=== PATIENT | male | born 1990 | race Caucasian/White ===

== ENCOUNTER 2017-12-10 22:36 | Inpatient (IN) | payer MEDICARE, MEDICAID ==
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
[2017-12-10 23:47] LABS: Appearance,Urine Clear (Clear); Bilirubin,Urine Negative (Negative); Blood,Urine Negative (Negative); Color,Urine Colorless; Glucose,Urine (UA) Negative (Negative); Ketones,Urine Negative (Negative); Leukocyte Esterase,Urine Negative (Negative); Nitrite,Urine Negative (Negative); PH, Urine 6.5 (5.0-8.0); Protein,Urine Negative (Negative); Specific Gravity,Urine 1.002 (1.001-1.035); Urobilinogen,Urine <2.0 mg/dL (<2.0)
[2017-12-11 00:08] LABS: Amphetamine Screen,Urine Not Detected (NotDetected); Barbiturate Screen,Urine Not Detected (NotDetected); Benzodiazepines Screen,Urine Not Detected (NotDetected); Cocaine Screen,Urine Not Detected (NotDetected); Methadone Screen, Urine Not Detected (NotDetected); Opiate Screen,Urine Not Detected (NotDetected); Oxycodone Screen, Urine Not Detected (NotDetected); Phencyclidine Screen,Urine Not Detected (NotDetected); Tricyclic Antidepressant,Urine Detected (NotDetected); Urn Cannabinoid Scrn Detected (NotDetected)
[2017-12-11] MEDS ORDERED: ZIPRASIDONE 20 MG VIAL IM PRN (02:02)
[2017-12-11] MEDS ORDERED: ACETAMINOPHEN TAB 325 MG TAB PO PRN (02:02)
[2017-12-11] MEDS ORDERED: MAGNESIUM HYDROXIDE 2,400 MG/10 ML CUP PO PRN (02:02)
[2017-12-11] MEDS ORDERED: MAG HYDROX/AL HYDROX/SIMETH 30 ML CUP PO PRN (02:02)
--- NOTE | 2017-12-11 07:46 | P.MDCNMH ---
History of Present Illness H&P Date: 12/11/17 Chief Complaint: Medical management 27-year-old male with no significant past medical history except for schizophrenia. Patient was brought into the hospital due to suicidal ideation, patient reports history of schizoaffective disorder, however recently due to overwhelming life stressors he's been feeling suicidal. He had been on probation due to possession of marijuana. He was having thoughts of hanging himself otherwise he would have used a weapon but he doesn't own 1. He is afraid of going to residential. He is currently is Denying Any Medical Concerns or Issues. He Denies Any Chest Pain or Trouble Breathing Denies Any Headaches Fevers Chills Nausea Vomiting or Coughing Denies Any Shortness Breath Denies Any Abdominal Pain or Changes in His Bowel Habits or Urinary Habits. Patient Reported One Concerned regarding a Palpable Rice Size Node at the Base of His Penis, he denies any sexual activity for at least the past 10 years. Denies any penile discharge. Denies any rash. He reports that he felt this for 3 days only, denies any pain, pruritus, or bleeding. Denies any discharge.. Review of Systems Pertinent positives as noted in HPI. All other systems were reviewed and are negative Past Medical History Past Medical History: No Reported History Additional Past Medical History / Comment(s): schizo-affective, bipolar History of Any Multi-Drug Resistant Organisms: None Reported Past Surgical History: No Surgical Hx Reported Past Anesthesia/Blood Transfusion Reactions: No Reported Reaction Past Psychological History: Anxiety, Bipolar, Depression Smoking Status: Current every day smoker Past Alcohol Use History: None Reported Past Drug Use History: None Reported - Past Family History Family Additional Family Medical History / Comment(s): Admits to mental health problems in his family without specifying further details Medications and Allergies Home Medications Medication Instructions Recorded Confirmed Type QUEtiapine [SEROquel] 400 mg PO HS 12/11/17 12/11/17 History Allergies Allergy/AdvReac Type Severity Reaction Status Date / Time No Known Allergies Allergy Verified 12/10/17 22:46 Physical Exam Vitals: Vital Signs Temp Pulse Pulse Resp BP BP Pulse Ox 12/11/17 02:28 98.7 F 108 H 16 129/80 95 12/11/17 02:15 98.3 F 97 18 130/80 97 12/10/17 22:43 98.4 F 119 H 18 133/88 97 Intake and Output 12/10/17 12/11/17 12/11/17 22:59 06:59 14:59 Other: Weight 101.605 kg 101.5 kg Constitutional: No acute distress, conversant, pleasant Eyes: Anicteric sclerae, moist conjunctiva, no lid-lag Pupils equal round reactive to light ENMT: NC/AT Oropharynx clear, no erythema, exudates Neck: Supple, FROM, no masses, or JVD No carotid bruits No thyromegaly Lungs: Clear to auscultation Clear to percussion Normal respiratory effort, no accessory muscle use Cardiovascular: Heart regular in rate and rhythm, No murmurs, gallops, or rubs No peripheral edema Abdominal: Soft Nontender, no guarding, rebound or rigidity Abdomen moving with respiration Normoactive bowel sounds No hepatomegaly, No splenomegaly No palpable mass No abdominal wall hernia noted In the presence of the patient nurse, and upon request of the patient, examination of the patient's of the penis was performed where he felt the small knot, it is a grain size nothing visual just palpable under the skin among the hairs, no tenderness no drainage no erythema. No palpable lymph nodes in the inguinal region. Skin: Normal temperature, tone, texture, turgor No induration No subcutaneous nodules No rash, lesions No ulcers Extremities: No digital cyanosis No clubbing Pedal pulses intact and symmetrical Radial pulses intact and symmetrical No calf tenderness Psychiatric: Alert and oriented to person, place and time Depressed affect Poor judgment Neuro Muscles Strength 5/5 in all 4 extremities Sensation to light touch grossly present throughout Cranial nerves II-XII grossly intact No focal sensory deficits Lymphatics: no palpable cervical or supraclavicular , or inguinal lymph nodes Cranial Nerve Examination - Cranial Nerves Cranial Nerve II- Optic: Intact Cranial Nerve III- Oculomotor: Intact Cranial Nerve IV- Trochlear: Intact Cranial Nerve V- Trigeminal: Intact Cranial Nerve - Abducens: Intact Cranial Nerve VII- Facial: Intact Cranial Nerve VIII- Auditory: Intact Cranial Nerve IX- Glossopharyngeal: Intact Cranial Nerve X- Vagus: Intact Cranial Nerve XI- Accessory: Intact Cranial Nerve XII- Hypoglossal: Intact Results CBC & Chem 7: 12/11/17 08:47 12/11/17 08:47 Labs: Abnormal Lab Results - Last 24 Hours (Table) 12/10/17 Range/Units 23:26 U Tricyclic Antidepress Detected H (NotDetected) U Marijuana (THC) Screen Detected H (NotDetected) Assessment and Plan Assessment: 27 year old male with history of schizophrenia and bipolar disorder, due to overwhelming life stressors, he has been feeling suicidal for which he was brought to the hopital , currently denies any medical problems or concerns. Plan: schizophrenia Bipolar Suicide ideation management per psych suicide precautions tobacco smoking counseled to quit smoking nicotine replacement therapy offered grain size palpable knot at the base of the penis most likely a sebaceous gland related to hair follicle , continue to monitor for any erythema, drainage or increase in size. expected benign progression low risk for DVT, patient is ambulatory Thank you for allowing us to participate in the care of this patient. We will follow peripherally. Do not hesitate to contact us with questions. Someone can be reached from the [facility] hospitalist group at all hours of the day at [phone].
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
[2017-12-11 09:21] LABS: Basophils # (A) 0.1 k/uL (0-0.2); Basophils % (A) 1 %; Eosinophils # (A) 0.3 k/uL (0-0.7); Eosinophils % (A) 3 %; HCT 48.4 % (39.0-53.0); Lymphocytes # (A) 2.8 k/uL (1.0-4.8); Lymphocytes % (A) 28 %; MCH 28.4 pg (25.0-35.0); Mean Platelet Volume 6.8; Monocytes # (A) 0.4 k/uL (0-1.0); Monocytes % (A) 4 %; Neutrophils # (A) 6.3 k/uL (1.3-7.7); Neutrophils % (A) 63 %; Platelet Count 246 k/uL (150-450); RBC 5.63 m/uL (4.30-5.90); RDW 13.6 % (11.5-15.5)
[2017-12-11 09:53] LABS: ALT 46 U/L (21-72); AST 27 U/L (17-59); Albumin 4.1 g/dL (3.5-5.0); Alkaline Phosphatase 72 U/L (38-126); Anion Gap 11 mmol/L; Blood Urea Nitrogen 11 mg/dL (9-20); Carbon Dioxide 23 mmol/L (22-30); Chloride 106 mmol/L (98-107); Cholesterol 137 mg/dL (<200); Glucose 168 mg/dL (74-99); HDL Cholesterol 26 mg/dL (40-60); LDL Cholesterol,Calculated 56 mg/dL (0-99); Potassium 3.8 mmol/L (3.5-5.1); Sodium 140 mmol/L (137-145); Total Bilirubin 0.5 mg/dL (0.2-1.3); Triglycerides 277 mg/dL (<150)
[2017-12-11 18:21] LABS: Hemoglobin A1C 5.2 % (4.0-6.0)
[2017-12-11] MEDS: QUEtiapine 400 MG TAB PO SCH (20:15)
[2017-12-11] MEDS: NICOTINE 21MG/24HR PATCH TRANSDERM SCH (20:36)
[2017-12-12] MEDS: NICOTINE 21MG/24HR PATCH TRANSDERM SCH (08:12)
--- NOTE | 2017-12-12 08:56 | P.PN ---
Progress Note - Text Interval history: The patient is found in his room he follows me to an interview room. He reports that he is feeling better today. He reports having a positive visit from his mother last evening. He states that his suicidal thoughts are gone today. He feels more comfortable excepting whatever legal consequence he gets regarding his possession of marijuana charge in the context of being on probation. He states he was able to sleep last night he does not feel overly tired in the morning due to the Seroquel. Vital signs are reviewed. We discussed the lack of structure that he has throughout the day at home and we discussed some options for participation. He is encouraged to engage more in resources available [facility]. He reports an interest in art. We discussed volunteer opportunities classes etc. Mental status exam: The patient is alert he is a mildly disheveled appearance hygiene is adequate. He is dressed in his own clothing. He seated calmly at the table he demonstrates no agitated behavior. He reports his mood is improved he maintains a blunted affect. He reports no suicidal ideation today no homicidal ideation intent or plan. He states "I couldn't do that to myself" . He demonstrates no abnormal involuntary movements. He is oriented to person place and date. He demonstrates no tangential thinking loose associations or flight of ideas. No verbal or physical aggressiveness. Insight and judgment beginning to improve. Plan: The patient will continue on the Seroquel as written. We will monitor him for safety and encourage full participation in the milieu. We will continue to assess his safety risk daily. He may be appropriate for discharge in the next 1-2 days.
[2017-12-12] MEDS: QUEtiapine 400 MG TAB PO SCH (20:11)
[2017-12-13 06:26] VITALS: BP 98/58; PULSE 57; RESP 14; TEMP 98.2
[2017-12-13] MEDS: NICOTINE 21MG/24HR PATCH TRANSDERM SCH (08:43)
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
[2017-12-13] MEDS ORDERED: QUEtiapine 200 MG TAB PO SCH (21:00)
== END 2017-12-13 13:16 | disposition home or self-care (01) | DRG 885 ==
LOC: EC 22:36 → 3MHU 12-11 01:17
PROVIDERS: ADMIT Psychiatry & Neurology Psychiatry; ATTEND Psychiatry & Neurology Psychiatry
DX: F25.1 Schizoaffective disorder, depressive type (principal); R45.851 Suicidal ideations; F12.19 Cannabis abuse with unspecified cannabis-induced disorder; F17.200 Nicotine dependence, unspecified, uncomplicated; F31.9 Bipolar disorder, unspecified; F41.9 Anxiety disorder, unspecified; Z65.3 Problems related to other legal circumstances; Z79.899 Other long term (current) drug therapy; Z81.8 Family history of other mental and behavioral disorders; Z91.14 Patient's other noncompliance with medication regimen; Z91.5 Personal history of self-harm
CPT/HCPCS: 80053; 80061; 80306; 81003; 82075; 83036; 84443; 85025

== ENCOUNTER 2018-10-09 19:57 | Inpatient (IN) | payer MEDICARE, MEDICAID ==
--- NOTE | 2018-10-09 20:47 | ED ---
Psych HPI - General Chief Complaint: Psychiatric Symptoms Stated Complaint: financial supervisor order Time Seen by Provider: 10/09/18 20:35 Source: patient, RN notes reviewed, old records reviewed Mode of arrival: ambulatory - History of Present Illness Initial Comments: This is a 27-year-old male the ER for evaluation of psychiatric illness. Patient resents a pickup order for psychiatric evaluation history of psychiatric disease. Patient denies current drug or alcohol abuse. Patient does admit to making suicidal thoughts earlier MD Complaint: suicidal ideation, feels depressed -: hour(s) Associated Psychiatric Symptoms: depression, suicidal ideation Quality: intermittent Improves With: none Worsens With: none Associated Symptoms: denies other symptoms Treatments Prior to Arrival: placed on mental health hold If Self Harm: admits thoughts of self harm - Related Data Home Medications Medication Instructions Recorded Confirmed No Known Home Medications 10/09/18 10/09/18 Allergies Allergy/AdvReac Type Severity Reaction Status Date / Time No Known Allergies Allergy Verified 10/10/18 09:10 Review of Systems ROS Statement: Those systems with pertinent positive or pertinent negative responses have been documented in the HPI. ROS Other: All systems not noted in ROS Statement are negative. Past Medical History Past Medical History: No Reported History Additional Past Medical History / Comment(s): schizo-affective, bipolar History of Any Multi-Drug Resistant Organisms: None Reported Past Surgical History: No Surgical Hx Reported Past Anesthesia/Blood Transfusion Reactions: No Reported Reaction Past Psychological History: Anxiety, Bipolar, Depression Smoking Status: Current every day smoker Past Alcohol Use History: None Reported Past Drug Use History: Marijuana - Past Family History Family Additional Family Medical History / Comment(s): Admits to mental health problems in his family without specifying further details Mother Additional Family Medical History / Comment(s): Mother with history of heart disease and arthritis General Exam Limitations: no limitations General appearance: alert, in no apparent distress Head exam: Present: atraumatic, normocephalic, normal inspection Eye exam: Present: normal appearance, PERRL, EOMI. Absent: scleral icterus, conjunctival injection, periorbital swelling ENT exam: Present: normal exam, mucous membranes moist Neck exam: Present: normal inspection. Absent: tenderness, meningismus, lymphadenopathy Respiratory exam: Present: normal lung sounds bilaterally. Absent: respiratory distress, wheezes, rales, rhonchi, stridor Cardiovascular Exam: Present: regular rate, normal rhythm, normal heart sounds. Absent: systolic murmur, diastolic murmur, rubs, gallop, clicks GI/Abdominal exam: Present: soft, normal bowel sounds. Absent: distended, tenderness, guarding, rebound, rigid Extremities exam: Present: normal inspection, full ROM, normal capillary refill. Absent: tenderness, pedal edema, joint swelling, calf tenderness Back exam: Present: normal inspection Neurological exam: Present: alert, oriented X3, CN II-XII intact Psychiatric exam: Present: normal affect, normal mood Skin exam: Present: warm, dry, intact, normal color. Absent: rash Course Vital Signs 10/09/18 20:24 Temperature 98.8 F Pulse Rate 61 Respiratory 16 Rate Blood Pressure 143/86 O2 Sat by Pulse 98 Oximetry - Reevaluation(s) Reevaluation #1: 10/09/18 23:22 Medical clear for psychiatric evaluation Medical Decision Making - Medical Decision Making 27-year-old male presents ER for evaluation of psychiatric illness. Patient be admitted for psychiatric evaluation and treatment - Lab Data Result diagrams: 10/10/18 10:37 10/10/18 10:37 Lab Results 10/09/18 Range/Units 21:05 Urine Opiates Screen Not Detected (NotDetected) Ur Oxycodone Screen Not Detected (NotDetected) Urine Methadone Screen Not Detected (NotDetected) Ur Propoxyphene Screen Not Detected (NotDetected) Ur Barbiturates Screen Not Detected (NotDetected) U Tricyclic Antidepress Not Detected (NotDetected) Ur Phencyclidine Scrn Not Detected (NotDetected) Ur Amphetamines Screen Not Detected (NotDetected) U Methamphetamines Scrn Not Detected (NotDetected) U Benzodiazepines Scrn Not Detected (NotDetected) Urine Cocaine Screen Not Detected (NotDetected) U Marijuana (THC) Screen Detected H (NotDetected) Disposition Clinical Impression: Depression, Suicidal ideation, Schizoaffective disorder, depressive type Disposition: TRANSFER TO PSYCH HOSP/UNIT Condition: Fair Is patient prescribed a controlled substance at d/c from ED?: No
[2018-10-09 22:15] LABS: Amphetamine Screen,Urine Not Detected (NotDetected); Barbiturate Screen,Urine Not Detected (NotDetected); Benzodiazepines Screen,Urine Not Detected (NotDetected); Cocaine Screen,Urine Not Detected (NotDetected); Methadone Screen, Urine Not Detected (NotDetected); Opiate Screen,Urine Not Detected (NotDetected); Oxycodone Screen, Urine Not Detected (NotDetected); Phencyclidine Screen,Urine Not Detected (NotDetected); Tricyclic Antidepressant,Urine Not Detected (NotDetected); Urn Cannabinoid Scrn Detected (NotDetected)
[2018-10-10] MEDS ORDERED: MAG HYDROX/AL HYDROX/SIMETH 30 ML CUP PO PRN (08:08)
[2018-10-10] MEDS: NICOTINE 14MG/24HR PATCH TRANSDERM SCH (10:05)
[2018-10-10 11:03] LABS: Basophils # (A) 0.1 k/uL (0-0.2); Basophils % (A) 1 %; Eosinophils # (A) 0.1 k/uL (0-0.7); Eosinophils % (A) 1 %; HCT 43.4 % (39.0-53.0); HGB 14.7 gm/dL (13.0-17.5); Lymphocytes # (A) 1.3 k/uL (1.0-4.8); Lymphocytes % (A) 15 %; MCH 29.3 pg (25.0-35.0); MCHC 33.9 g/dL (31.0-37.0); MCV 86.4 fL (80.0-100.0); Mean Platelet Volume 7.8; Monocytes # (A) 0.3 k/uL (0-1.0); Monocytes % (A) 4 %; Neutrophils # (A) 6.8 k/uL (1.3-7.7); Neutrophils % (A) 78 %; Platelet Count 238 k/uL (150-450); RBC 5.02 m/uL (4.30-5.90); WBC 8.7 k/uL (3.8-10.6)
[2018-10-10 11:33] LABS: ALT 21 U/L (21-72); AST 23 U/L (17-59); African American GFR (CKD) >90 (>60 ml/min/1.73 sqM); Albumin 4.4 g/dL (3.5-5.0); Alkaline Phosphatase 57 U/L (38-126); Anion Gap 11 mmol/L; Bilirubin, Delta 0.1 mg/dL (0.0-0.2); Bilirubin,Unconjugated 1.4 mg/dL (0.0-1.1); Blood Urea Nitrogen 11 mg/dL (9-20); Calcium 9.2 mg/dL (8.4-10.2); Carbon Dioxide 23 mmol/L (22-30); Chloride 106 mmol/L (98-107); Cholesterol 103 mg/dL (<200); Glucose 177 mg/dL (74-99); HDL Cholesterol 31 mg/dL (40-60); LDL Cholesterol,Calculated 59 mg/dL (0-99); Potassium 3.9 mmol/L (3.5-5.1); Sodium 140 mmol/L (137-145); Total Bilirubin 1.5 mg/dL (0.2-1.3); Total Protein 6.9 g/dL (6.3-8.2); Triglycerides 65 mg/dL (<150)
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
[2018-10-10] MEDS: ARIPiprazole 15 MG TAB PO SCH (12:17)
--- NOTE | 2018-10-10 16:48 | P.HPMEDMHU ---
History of Present Illness H&P Date: 10/10/18 Chief Complaint: Psychosis Patient is a 27-year-old male with a past medical history of hypertension that he states was induced by Haldol he no longer takes occasions for, schizoaffective disorder, and bipolar disorder who initially presented to the ER and a pickup order for symptoms of psychosis. He is now admitted to the mental health unit. Patient seen and examined at bedside. He is alert and oriented 3. He denies any recent cough, cold, fever, flu, nausea, vomiting, diarrhea, constipation. He then says he has intermittent diarrhea but he is not having any now, on physical exam he then complains of "lung pain". Review of Systems Pertinent positives and negatives as discussed in HPI, a complete review of systems was performed and all other systems are negative. Past Medical History Additional Past Medical History / Comment(s): schizo-affective, bipolar History of Any Multi-Drug Resistant Organisms: None Reported Past Surgical History: No Surgical Hx Reported Past Anesthesia/Blood Transfusion Reactions: No Reported Reaction Past Psychological History: Anxiety, Bipolar, Depression Smoking Status: Current every day smoker Past Alcohol Use History: None Reported Past Drug Use History: Marijuana Additional Drug Use History / Comment(s): Also reports a history of using mushrooms and experimenting with other drugs in the past - Past Family History Family Additional Family Medical History / Comment(s): Admits to mental health problems in his family without specifying further details. Cardiac issues on his mothers side. Mother Additional Family Medical History / Comment(s): Mother with history of heart disease and arthritis Medications and Allergies Home Medications Medication Instructions Recorded Confirmed Type No Known Home Medications 10/09/18 10/09/18 History Allergies Allergy/AdvReac Type Severity Reaction Status Date / Time No Known Allergies Allergy Verified 10/10/18 09:10 Physical Exam Osteopathic Statement: *. No significant issues noted on an osteopathic structural exam other than those noted in the History and Physical/Consult. Vitals: Vital Signs Temp Pulse Pulse Resp BP BP Pulse Ox 10/10/18 08:35 97.5 F L 61 18 131/78 10/09/18 20:24 98.8 F 61 16 143/86 98 General: non toxic, no distress, appears at stated age, normal weight Derm: Multiple tattoos, no unusual rashes/lesions no unusual ecchymoses, warm, dry Head: atraumatic, normocephalic, symmetric Eyes: EOMI, no lid lag, anicteric sclera, pupils equal round reactive to light ENT: Nose and ears atraumatic, no thrush, no pharyngeal erythema Neck: No thyromegaly, no cervical lymphadenopathy, trachea midline, supple Mouth: no lip lesion, mucus membranes moist Cardiovascular: S1S2 reg, no murmur, positive posterior tibial pulse bilateral, no edema, capillary refill less than 2 seconds Lungs: CTA bilateral, no rhonchi, no rales , no accessory muscle use Abdominal: soft, nontender to palpation, no guarding, no appreciable organomegaly, normal bowel sounds Ext: no gross muscle atrophy, muscle strength 5 out of 5 in all 4 extremities grossly, no contractures, Neuro: CN II-XI grossly intact, light touch intact all 4 extremities, finger to nose within normal limits, Psych: Alert, oriented, flat affect, difficulty with concentration Cranial Nerve Examination - Cranial Nerves Cranial Nerve II- Optic: Intact Cranial Nerve III- Oculomotor: Intact Cranial Nerve IV- Trochlear: Intact Cranial Nerve V- Trigeminal: Intact Cranial Nerve - Abducens: Intact Cranial Nerve VII- Facial: Intact Cranial Nerve VIII- Auditory: Intact Cranial Nerve IX- Glossopharyngeal: Intact Cranial Nerve X- Vagus: Intact Cranial Nerve XI- Accessory: Intact Cranial Nerve XII- Hypoglossal: Intact Results CBC & Chem 7: 10/10/18 10:37 10/10/18 10:37 Labs: Abnormal Lab Results - Last 24 Hours (Table) 10/09/18 10/10/18 Range/Units 21:05 10:37 Glucose 177 H (74-99) mg/dL Total Bilirubin 1.5 H (0.2-1.3) mg/dL Unconjugated Bilirubin 1.4 H (0.0-1.1) mg/dL HDL Cholesterol 31 L (40-60) mg/dL U Marijuana (THC) Screen Detected H (NotDetected) Thrombosis Risk Factor Assmnt - Choose All That Apply Any of the Below Risk Factors Present?: No Other Risk Factors: No Other congenital or acquired thrombophilia - If yes, enter type in comment: No Thrombosis Risk Factor Assessment Level: Very Low Risk Assessment and Plan Assessment: Tobacco abuse -Cessation -Nicotine replacement Marijuana use -Encourage patient to not participate in the use of illicit drugs as he has also used mushrooms and other illicit substances. Schizoaffective disorder -Your psych management Thank you for allowing us to participate in the care of this patient. We will follow peripherally. Do not hesitate to contact us with questions. Someone can be reached from the [facility] hospitalist group at all hours of the day at [phone].
[2018-10-10 18:29] LABS: Hemoglobin A1C 5.4 % (4.0-6.0)
[2018-10-10] MEDS: ACETAMINOPHEN TAB 325 MG TAB PO PRN (19:30)
[2018-10-11] MEDS: LORazepam 1 MG TAB PO PRN (03:26)
[2018-10-11] MEDS: NICOTINE 14MG/24HR PATCH TRANSDERM SCH ×2 (08:42→19:13)
[2018-10-11] MEDS: ARIPiprazole 15 MG TAB PO SCH (08:42)
--- NOTE | 2018-10-11 10:41 | P.PN ---
Progress Note - Text Interval history: The patient's found in his room he follows me to an interview room. He states that his mood is down. He describes having difficulty sleeping. Staff recorded slept 5 hours last evening. He has been in bed most of the morning. At length we discussed the importance of staying out of bed during the day and attending groups. He continues to verbalize disorganized delusional thoughts. He ventilates some feelings of frustration that his mother placed him in the hospital unnecessarily. We reviewed his psychotropic medication his questions were answered. Mental status exam: The patient is alert he is a male appearing his stated age. He has a disheveled appearance hygiene is impaired his hair appears dirty. He is dressed in hospital gowns. Eye contact is intermittent he speaks very quietly slowly. At times is difficult to understand him. He reports no suicidal or homicidal thoughts. He reports hearing voices but does not describe the content. He is does describe some paranoid thoughts he feels that he could be in danger. He describes other bizarre thoughts which were similar to what he described yesterday. He continues to feel hated by others. Insight and judgment are poor. He demonstrates no verbal or physical aggressiveness. Plan: The patient will continue on the Abilify is written. We will titrate further if needed. He is encouraged to participate in groups and stay out of bed during the day. Vital signs reviewed. We will continue to monitor him for safety. He requires continued psychiatric hospitalization for symptoms of psychosis.
[2018-10-11] MEDS: MAGNESIUM HYDROXIDE 2,400 MG/10 ML CUP PO PRN (13:59)
[2018-10-11] MEDS: ACETAMINOPHEN TAB 325 MG TAB PO PRN (19:11)
[2018-10-12] MEDS: LORazepam 1 MG TAB PO PRN ×2 (00:50→20:04)
[2018-10-12] MEDS: ARIPiprazole 15 MG TAB PO SCH (09:01)
[2018-10-12] MEDS: NICOTINE 14MG/24HR PATCH TRANSDERM SCH (09:01)
--- NOTE | 2018-10-12 09:38 | P.PN ---
Progress Note - Text Interval history: The patient is found in the hallway he follows me to an interview room. He states his mood is down but stable. He continues to feel as though millions of people hate him. He states prior to coming in she was on the Internet and he was reading about disturbing things. He reports that he believes in telepathy and people could read his thoughts and see his visual images. He states he causes they were able to do that that caused numerous people to . He believes that I am able to read his thoughts and if he knows somebody well enough he can read their thoughts. He indicates that he plans on attending more groups today. No visits last evening. Social work note reviewed. Mental status exam: The patient is alert hygiene and improved it appears he has showered. He is out of his room more ambulating in the hallway with his head down. He has intermittent eye contact during our session. He is dressed in hospital gowns. He describes his mood as being down but stable. He indicates he feels safe here in the hospital. He reports no homicidal ideation. He describes delusional thought content as noted and he describes auditory hallucinations. He states he will frequently have a voice repeating what he saying. Insight and judgment limited. He demonstrates no verbal or physical aggressiveness. There is some observed psychomotor slowing. He demonstrates no involuntary repetitive movements. Plan: The patient will continue on the Abilify we will titrate the dose to 20 mg daily. We will encourage his participation in the milieu. We will monitor him for safety. Vital signs reviewed. The patient requires continued psychiatric hospitalization for acute psychosis impairing his insight and judgment.
[2018-10-12] MEDS: MAGNESIUM HYDROXIDE 2,400 MG/10 ML CUP PO PRN (20:04)
[2018-10-12] MEDS: ACETAMINOPHEN TAB 325 MG TAB PO PRN (20:04)
[2018-10-13] MEDS: NICOTINE 14MG/24HR PATCH TRANSDERM SCH (08:35)
[2018-10-13] MEDS: LORazepam 1 MG TAB PO PRN ×2 (08:36→20:50)
--- NOTE | 2018-10-13 09:25 | P.PN ---
Progress Note - Text Interval history: The patient is found in his room he follows me to an interview room. He states that he is tired of being here and would like to be discharged. He states he had a visit with his mother last evening and she told him he needs to stay longer. He states that he is not going to groups because it hard to be around people who "hate me". He states the staff here has been harassing him constantly and when asked to give examples he states "they keep calling me the N word". He has no questions or concerns regarding medication. He reports sleeping last night staff report he slept 4 hours. He states he is eating but does not like the food. He does not intend on attending groups. On a positive note he identifies that he needs to discontinue use of marijuana and is trying to think of strategies to accomplish that task. Mental status exam: The patient is alert he is more interactive during the session. Hygiene is improved he is dressed in his own clothing he appears disheveled. Speech is fluent and spontaneous he soft-spoken. He endorses a frustrated mood. Affect is congruent. He is reporting no suicidal or homicidal thoughts. He endorses auditory hallucinations but does not describe the content. He describes paranoid and persecutory thoughts. Insight and judgment are impaired. He is oriented to person place and date. He demonstrates no verbal or physical aggressiveness. He demonstrates no involuntary movements. Plan: Continued symptoms of psychosis, continue Abilify which is just been titr ated to 20 mg daily. We will consider titrating further. He is more interactive during our brief sessions but his symptoms of psychosis persist. He states his mother visited last evening we will have sr. social media & mobile manager contact her to get a status update from her. Vital signs reviewed. Although he is choosing not to attend he is encouraged to participate in the milieu. We will continue monitoring for safety. He requires continued psychiatric hospitalization as he continues to have significant psychosis which is adversely affecting his insight and judgment.
[2018-10-13] MEDS ORDERED: WATER FOR INJECTION, STERILE 10 ML IV ONE (11:55)
[2018-10-13] MEDS: ZIPRASIDONE 20 MG VIAL IM PRN ×2 (12:02→22:06)
[2018-10-13] MEDS: ACETAMINOPHEN TAB 325 MG TAB PO PRN (20:49)
[2018-10-14] MEDS: LORazepam 1 MG TAB PO PRN ×2 (07:56→15:10)
[2018-10-14] MEDS: NICOTINE 14MG/24HR PATCH TRANSDERM SCH (07:57)
--- NOTE | 2018-10-14 10:05 | P.PN ---
Progress Note - Text Interval history: The patient is found in his room he follows me to an interview room. He indicates that he will not attend groups and they are "not therapeutic". He states that everybody and there will be thinking bad things about him. We discussed his Abilify at length. He had several questions and requested to review his lab work. His questions were answered. It appears that the patient had his deferral conference and decided not to defer and his court hearing is scheduled for Saturday. Mental status exam: The patient is alert he has a disheveled appearance hygiene is adequate. He is dressed in his own clothing. He was found this morning in his room walking around. He follows me to an interview room. He remained seated in the chair calmly. Eye contact was adequate speech was fluent spontaneous nonpressured. He speaks softly. He demonstrates some mild psychomotor slowing. He continues to describe ongoing paranoid and persecutory thoughts that are adversely impacting his insight and judgment. He is reporting no thoughts of harming himself or others. He does make some random statements unrelated to the conversation. He demonstrates no verbal or physical aggressiveness. He demonstrates no involuntary repetitive movements. Plan: Continued symptoms of psychosis, the patient will continue on the Abilify. We will consider titrating further. Affect of Joseph he is more engaged in the conversation and a little brighter but in terms of his psychosis the severity has not changed. Vital signs reviewed. He is encouraged to participate in the milieu although he is refusing. We will continue monitoring him for safety.
[2018-10-15] MEDS ORDERED: ACETAMINOPHEN TAB 325 MG TAB ONE (00:43)
[2018-10-15] MEDS: NICOTINE 14MG/24HR PATCH TRANSDERM SCH (10:10)
--- NOTE | 2018-10-15 11:22 | P.PN ---
Progress Note - Text Interval history: The patient's found in his room he refuses to follow me to an interview room. He states his mood is miserable. He states he hasn't been showering and isn't going to groups describing those activities as "pointless". He states that he continues to experience auditory hallucinations telling him he is killing people. He has no questions regarding his medication. He continues to voice his feelings that he does not need to be admitted here to the mental health unit. Mental status exam: The patient is lying in bed he is awake. He is dressed in his own clothing and is partially covered with a blanket. He does have a follow odor hygiene is impaired his hair appears dirty. Speech is nonspontaneous but he provides some answers to questions asked. He continues to describe paranoid and persecutory thoughts. The symptoms of psychosis impaired his insight and clinical judgment. He is reporting no thoughts of self-harm or harm to others. He demonstrates no verbal or physical aggressiveness. He demonstrates no involuntary repetitively movements. He is oriented to day the week as or Saturday. He is aware of the current date. Affect is blunted. Plan: Continued symptoms of psychosis, Abilify will be increased to 30 mg daily. We will monitor him for safety and encourage participation in the milieu. Reality orientation is provided. Vital signs reviewed. He requires continued psychiatric hospitalization.
[2018-10-15] MEDS: ZIPRASIDONE 20 MG VIAL IM PRN (16:58)
[2018-10-15] MEDS: LORazepam 1 MG TAB PO PRN (21:28)
[2018-10-16] MEDS: ARIPiprazole 15 MG TAB PO SCH (08:11)
[2018-10-16] MEDS: NICOTINE 14MG/24HR PATCH TRANSDERM SCH (08:11)
--- NOTE | 2018-10-16 09:44 | P.PN ---
Progress Note - Text Interval history: The patient is found in his room he follows me to an interview room. He indicates his mood is horrible. He states he is having visions of himself hurting people but states "I would never do it". He states he's been having suicidal thoughts. He continues to feel that he is hurting others and people are angry with him as a result. He reports being compliant with the Abilify. We discussed that the dose was titrated again. He indicates he hopes it will help with the hallucinations. Staff report that he was oppositional last evening and agitated. He received an injection of Geodon. He was able to subsequently sleep through the night. He indicates he had a phone conversation with his mother yesterday but states "I can't discuss anything positive with her". Mental status exam: The patient is alert he has a disheveled appearance he is dressed in his own clothing. Eye contact is intermittent. He has little spontaneous speech but does provide answers to questions. He indicates his mood is horrible his affect is bland. He reports auditory and visual hallucinations as noted above. He endorses paranoid and persecutory delusional thoughts. He reports having suicidal thoughts. He reports visions of harming others is no plan of acting on it however. Insight and judgment are impaired. He is orie nted to person place he names a day the week is Saturday rather than . He demonstrates no verbal or physical aggressiveness. He demonstrates no involuntary repetitive movements. Plan: Continued symptoms of psychosis, Abilify has been titrated to 30 mg daily. We will allow this time to demonstrate efficacy. He remains acutely psychotic and requires inpatient psychiatric hospitalization for safety reasons. Vital signs reviewed. He is encouraged to participate in the milieu. He states that he is not comfortable around other people as he feels they hate him but we discussed that at the very least the groups could serve as a distraction from his symptoms of psychosis.
[2018-10-16] MEDS: ACETAMINOPHEN TAB 325 MG TAB PO PRN (11:53)
[2018-10-16] MEDS: LORazepam 1 MG TAB PO PRN ×2 (11:53→21:24)
[2018-10-17] MEDS: NICOTINE 14MG/24HR PATCH TRANSDERM SCH ×2 (07:51→18:37)
[2018-10-17] MEDS: ARIPiprazole 15 MG TAB PO SCH (07:51)
[2018-10-17] MEDS: LORazepam 1 MG TAB PO PRN (08:34)
--- NOTE | 2018-10-17 11:12 | P.PN ---
Progress Note - Text Interval history: The patient is found in his room he follows me to an interview room. He reports that last evening he had a few moments where he felt better. He states there was a break in the hallucinations. They have been occurring this morning again. Intent is to have thoughts or visions of harming other people or himself. Again he states he has no desire to act on those thoughts. He continues to feel that his body is projecting himself out of his body. He feels that he is affecting others adversely. He does state that his concentration and focus seem to be better. He did shower he shaved. Staff reported he attended 2 groups. There was some concern that he was not eating adequately. It looks like yesterday he didn't her an evening snack and half of his breakfast. We discussed options in terms of many selections. Mental status exam: The patient is alert he is pleasant he is cooperative he is dressed in his own clothing hygiene is improved he has shaved. Eye contact is adequate. He indicates his mood continues to be troubled. He continues to experience auditory hallucinations as noted he continues to have some paranoid persecutory thinking. He reports no desire to hurt himself or others but has those thoughts. He demonstrates no verbal or physical aggressiveness he demonstrates no involuntary repetitive movements. Insight and judgment impaired. He maintains a bland affect throughout the session. Plan: Ongoing symptoms of psychosis, continue medication as written the Abilify was just titrated. He went to court today and consented to a full treatment order. We discussed the implications of that decision. I hope to transition him to Abilify maintena if this medication is demonstrating adequate efficacy. We will monitor him for safety and encourage increased participation in the milieu.
[2018-10-17] MEDS: MAGNESIUM HYDROXIDE 2,400 MG/10 ML CUP PO PRN (17:04)
[2018-10-18] MEDS: NICOTINE 14MG/24HR PATCH TRANSDERM SCH (07:51)
[2018-10-18] MEDS: ARIPiprazole 15 MG TAB PO SCH (07:51)
[2018-10-18] MEDS: LORazepam 1 MG TAB PO PRN ×2 (12:09→22:00)
--- NOTE | 2018-10-18 12:36 | P.PN ---
Progress Note - Text Progress Note Date: 10/18/18 Interval History: Patient is a 27-year-old male who was seen in coverage over the weekend. Patient states that his auditory hallucinations are less intense, less frequent. He states he still is suspicious of others and reports that he has no suicidal or homicidal ideation but stated to me that he thinks that he can't control his Astroprojections and may accidentally hurt someone with past mistakes. He states that he avoids the groups because he is getting into arguments with people and avoids interactions with others because he may do something stupid. Patient states he wishes he could eat more organic food while he is here. Mental Status: Appearance/Attitude: Patient is appropriately dressed, makes intermittent eye contact and was cooperative Behavior: Patient did not display any psychomotor agitation or retardation Speech/Language: Patient's speech was spontaneous with a slight delay in responding to questions, he spoke in a normal volume and rhythm and was coherent Thought Process: Patient was goal-directed there is no evidence of loose association or flight of ideas Thought Content: Patient states the auditory hallucinations are decreasing in intensity and frequency, he denied any visual hallucinations and states he is paranoid that others may try to hurt him. He also stated to me that he may accidentally hurt someone else because he cannot control his Astroprojections. He states he avoids groups because he is getting into arguments with others and also avoids interactions because he fears he'll do something stupid but can't elaborate on what he means by that. Patient states that he is eating and sleeping. Suicidal/Homicidal Ideation: Patient denies any current suicidal or homicidal ideation Sensorium/Cognition: Patient is alert and oriented to person, place and time Mood/Affect: Patient's mood is restricted and his affect is slightly blunted Insight/Judgment: Patient's insight and judgment are impaired Assessment: Patient's been compliant with medication, reports that he is eating and sleeping and states that the auditory hallucinations are less intense and frequent. Patient states that he still as thoughts that he may hurt someone accidentally because he cannot control Aryan projections states he avoids groups because he might get into an argument and interacting with others because he might do something stupid. Patient reports no side effects from the medications and feels that the increase has been beneficial. Plan: Patient will continue on Abilify 30 mg daily, no evidence of side effects and he reports no side effects. Patient continues to require hospitalization.
[2018-10-18] MEDS: ZIPRASIDONE 20 MG VIAL IM PRN (15:02)
[2018-10-19] MEDS: NICOTINE 14MG/24HR PATCH TRANSDERM SCH (08:09)
[2018-10-19] MEDS: ARIPiprazole 15 MG TAB PO SCH (08:09)
[2018-10-19] MEDS: LORazepam 1 MG TAB PO PRN ×2 (08:11→18:42)
--- NOTE | 2018-10-19 12:31 | P.PN ---
Progress Note - Text Progress Note Date: 10/19/18 Interval History: Patient is a 27-year-old male who was seen in coverage over the weekend. Patient states that he got a little agitated yesterday because he thought someone at the desk was talking about his needing to stay here longer. Patient states he was given medication and that it was beneficial. Patient states that he continues to hear voices that are making derogatory comments but they are getting less intense. Patient states he didn't sleep well last night because of another patient on the unit. Patient states that he's been attending groups and activities. States that he is eating okay. He states that he still concerned about past addictions but states that his mother is helped him with them Mental Status: Appearance/Attitude: Patient is casually dressed, made eye contact and was cooperative Behavior: Patient did not exhibit any psychomotor agitation or retardation. Speech/Language: Patient's speech was spontaneous, he spoke in a soft voice and was coherent Thought Process: Patient was goal-directed in his responses with little elaboration Thought Content: Patient states that he continues to hear voices but they're less frequent and still are of a derogatory nature. He denied any visual hallucinations. Patient denied any paranoid ideation but stated that he thought yesterday someone behind the desk was talking about his needing to stay in the hospital longer and he states he still has disturbing thoughts about past addictions, he could not explain this further and states that his mother helped him with this. Patient states that he didn't sleep well last night due to being awakened by another patient on the unit. Suicidal/Homicidal Ideation: Patient denied any current suicidal or homicidal ideation Sensorium/Cognition: Patient is alert and oriented to person, place and time Mood/Affect: Patient's mood remains restricted and his affect blunted Insight/Judgment: Patient's insight and judgment are impaired Assessment: Patient reports that the voices are still there but are less frequent and less intense and remain of a derogatory nature. He states he still has disturbing thoughts about addiction but cannot elaborate on what he is referring to and then stated that his mother helped him with this. He states he did not sleep well last night due to the disruptive behavior of another patient on the unit. Patient did receive an when necessary Geodon yesterday for agitation that he states was due to the fact that someone behind the desk was talking about his needing to stay longer in the hospital. Plan: Patient will continue on his current medications, patient continues to require hospitalization to further stabilize his psychotic symptoms.
[2018-10-19] MEDS: ZIPRASIDONE 20 MG VIAL IM PRN (13:15)
[2018-10-19] MEDS ORDERED: OLANZapine ODT 5 MG TAB PO STA (19:55)
[2018-10-19] MEDS ORDERED: HALOPERIDOL LACTATE 5 MG/ML 1 ML VIAL IM STA (20:05)
[2018-10-19] MEDS ORDERED: LORazepam 2 MG/ML INJ IM STA (20:06)
[2018-10-20] MEDS: NICOTINE 14MG/24HR PATCH TRANSDERM SCH (08:06)
[2018-10-20] MEDS: ARIPiprazole 15 MG TAB PO SCH (08:06)
[2018-10-20] MEDS: LORazepam 1 MG TAB PO PRN ×3 (08:08→23:55)
[2018-10-20] MEDS ORDERED: LORazepam 2 MG/ML INJ IM PRN (13:56)
--- NOTE | 2018-10-20 14:02 | P.PN ---
Progress Note - Text Progress Note Date: 10/20/18 Interval History: Patient is a 27-year-old male who is being seen in coverage, patient is in his room in his bed and states that he doesn't feel well physically and so I spoke with him in his room. Patient states that he isn't feeling well physically but could not elaborate further. Patient stated that he got upset last night and naps when he was threatening to hurt someone, denied that he felt people could read his mind or put thoughts in his head and would not elaborate on what else was going on last night. Patient states that he is not having any thoughts to hurt someone now or himself. Mental Status: Appearance/Attitude: Patient is lying in his bed, makes no eye contact but was cooperative Behavior: Patient does not exhibit any psychomotor agitation or retardation. Speech/Language: Patient's speech was of normal volume and rhythm and he was coherent Thought Process: Patient's responses were goal-directed although with little elaboration Thought Content: Patient stated that the voices are less, no visual hallucinations and denied that he thought that people were inserting thoughts into his mind or that people could read his mind. When I asked him what occurred last night when he felt that he was being given cancer, thought that the staff were talking about him and he threatened to hurt people he states that he got upset about being in the hospital. Suicidal/Homicidal Ideation: Patient denies any current suicidal or homicidal ideation Sensorium/Cognition: Patient is alert and oriented to person, place and time Mood/Affect: Patient's mood is restricted and his affect blunted Insight/Judgment: Patient's insight and judgment are impaired Assessment: Patient yesterday afternoon became increasingly agitated and paranoid, thinking that staff were talking about him, could read his mind and he threatened to hurt people. Patient was given IM Geodon with little benefit in his paranoia and agitation continued to escalate. Patient was offered oral medication which she declined and was given Haldol and Ativan as needed with good results. Patient last 2 evenings has had increasing episodes of agitation and paranoia requiring as needed medication. Plan: Patient continues on Abilify 30 mg daily, I have discontinued his Geodon when necessary as it appeared to be have little effect and ordered Haldol and Ativan to be used IM for episodes of agitation and psychosis. Patient continues to require hospitalization to stabilize his psychotic symptoms.
[2018-10-20] MEDS: ACETAMINOPHEN TAB 325 MG TAB PO PRN (17:25)
[2018-10-20] MEDS: HALOPERIDOL LACTATE 5 MG/ML 1 ML VIAL IM PRN (21:44)
[2018-10-21] MEDS: ARIPiprazole 15 MG TAB PO SCH (09:10)
[2018-10-21] MEDS: NICOTINE 14MG/24HR PATCH TRANSDERM SCH ×2 (09:11→19:09)
[2018-10-21 09:49] VITALS: BMI 23.6
--- NOTE | 2018-10-21 11:10 | P.PN ---
Progress Note - Text Interval history: The patient is found in the hallway he follows me to an interview room. He seems to be having difficulty in the late afternoon and evening in terms of his psychosis worsening. The Geodon when necessary was changed to Haldol and it seems the Haldol was more effective. We do know that the patient was treated with Haldol the past. We were trying to use the Abilify to give him the benefit of an atypical antipsychotic. We discussed options and he is agreeable to taking Haldol orally in the late afternoon at least t emporarily. This may be part of a plan to transition the medication depending on his response. He selectively attends groups. He states during the day as it progresses he will have or paranoid and persecutory thinking. Mental status exam: The patient is alert he has good hygiene grooming eye contact is appropriate. He seated calmly in the chair. Affect is bland. He reports his mood is okay but he is troubled by symptoms of psychosis. He states he has thoughts that he may be a clone. He has thoughts that others hate him he has thoughts that he is harming other people. He describes other bizarre delusional thoughts. He speaks quietly he is nonpressured. He demonstrates no tangential thinking loose associations or flight of ideas. He demonstrates no verbal or physical aggressiveness or any involuntary repetitive movements. His symptoms of psychosis continue to adversely affect his insight and judgment. Plan: Ongoing symptoms of psychosis, continue Abilify is written nursing is asked to be sure he is complying with that medication. We will add Haldol 5 mg in the late afternoon. We may consider transitioning him from Abilify to Haldol if it appears the Haldol is more efficacious. He is not yet stable for discharge due to his ongoing severe symptoms of psychosis. Vital signs reviewed.
[2018-10-21] MEDS: LORazepam 1 MG TAB PO PRN ×2 (13:29→22:15)
[2018-10-22] MEDS: ACETAMINOPHEN TAB 325 MG TAB PO PRN ×2 (00:24→20:29)
[2018-10-22] MEDS: NICOTINE 14MG/24HR PATCH TRANSDERM SCH (08:24)
[2018-10-22] MEDS: ARIPiprazole 15 MG TAB PO SCH (08:24)
[2018-10-22] MEDS: LORazepam 1 MG TAB PO PRN ×2 (09:40→17:12)
[2018-10-22] MEDS: HALOPERIDOL LACTATE 5 MG/ML 1 ML VIAL IM PRN (09:40)
--- NOTE | 2018-10-22 09:45 | P.PN ---
Progress Note - Text Interval history: The patient's found in the hallway he follows me to an interview room. He indicates he is doing terrible. He states that he is killing millions of people. He reports that he believes in telepathy. He states that he knows he is hurting people because he masturbates too often. He feels that he should not be eating food here as it's filled with chemicals and this will cause an imbalance in his brain. He reports feeling upset with his mother because he believes in telepathy and she knew he was hurting people. He describes continued images of him harming people although he has no desire to do so. He has no questions regarding his medication. He ventilates feelings of frustration that he is here on a locked unit and he describes feeling like a "caged dog". Mental status exam: The patient is alert he is dressed in his own clothing hygiene grooming adequate. Speech is fluent and spontaneous nonpressured. He maintains a bland affect. He describes a mood that is "terrible". He continues to spontaneously reports several types of delusions. He does become tearful at one point in describing how he is hurting others. Insight and judgment poor. He demonstrates no verbal or physical aggressiveness. He demonstrates no involuntary repetitive movements. In terms of thought process he does answer some questions in a linear fashion however he is focused on his delusional thinking. Plan: Ongoing severe symptoms of psychosis, we will increase Haldol to 5 mg twice daily. Continue Abilify as written. We will monitor for any excessive sedation or side effects. Vital signs reviewed. Although he refuses he is encouraged to participate in the milieu. Efforts are made to provide reality orientation but mostly those are unsuccessful. We will continue to monitor him for safety.
[2018-10-22] MEDS: HALOPERIDOL 5 MG TAB PO SCH ×2 (12:00→20:29)
[2018-10-22] MEDS ORDERED: HALOPERIDOL 5 MG TAB PO SCH (15:00)
[2018-10-23] MEDS: MAGNESIUM HYDROXIDE 2,400 MG/10 ML CUP PO PRN (05:20)
[2018-10-23] MEDS: LORazepam 1 MG TAB PO PRN (05:37)
[2018-10-23] MEDS: HALOPERIDOL 5 MG TAB PO SCH ×2 (08:11→21:00)
[2018-10-23] MEDS: NICOTINE 14MG/24HR PATCH TRANSDERM SCH (08:11)
[2018-10-23] MEDS: ARIPiprazole 15 MG TAB PO SCH (08:11)
--- NOTE | 2018-10-23 11:37 | PN ---
DATE OF SERVICE: 10/23/2018 PROGRESS NOTE CHIEF COMPLAINT: The patient had delusions that he was engaged in telepathy and believed he was harming millions of people through that power. He was depressed with poor sleep and appetite. INTERVAL HISTORY: The patient has been doing fair. Yesterday he had gone to the nursing station saying that he needed them to take his clothes because he had just tried to kill himself with his shirt. I refer the reader to the nursing note at 1:39 pm from October 22 for details. The patient was not able to contract for safety. He was placed on 04-22. According to staff, he was doing well through the weekend. He was attending groups. He was more engaged with others than in the last few days, he has seemed to regress. He did not attend any groups yesterday nor has he attended groups this morning. The patient said today that he has been sleeping excessively. When I saw him today, he continues to report that he has thoughts about telepathy. He believes he impacts many people by thoughts. He was vague about particulars. When I asked him about risk of harm to himself or others, he said that mostly he is concerned about harming himself, though does not believe that he would harm anyone else. On the other hand, he says that he believes he harms other people by his own actions which includes self stimulating activity that he has been involved in. He says at home this would happen many times in the day. He notes that he is on disability because he has not been able to hold a job. He lives in his own apartment. He says it is a struggle for him on the unit as he feels more uncomfortable with the behavior. He notes that currently he is withdrawing from regular use of marijuana. In addition he is a smoker, though stopped smoking when he came into the hospital and has chosen to not using any replacement nicotine. He says he is willing to deal with withdrawal instead. His mood is down. He acknowledges that it is hard for him to be out in the social areas. He says he believes that people do not like him, though he does not offer any basis for basis for the belief. He tolerates his psychotropic medication. MENTAL STATUS: Patient gave fairly good eye contact. Psychomotor activity was restless. He answered questions with brief responses. He did not say a lot, though he would give reasonable answers to questions asked. He was not spontaneous or interactive. His affect was flat. His mood withdrawn. He was moderately distressed. He made references to delusional thinking. Cognition was clear. He was ambulatory with normal gait and strength. There was no tremor, abnormal movements or rigidity. ASSESSMENT: I will continue the current diagnosis and treatment plan. Patient will continue Abilify 30 mg a day. I will increase Haldol to 10 mg twice a day. 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 I encouraged the patient to utilize a therapeutic physical activity program to help reduce physiologic withdrawal issues. I strongly encouraged the patient to attend groups. I asked the patient if he was comfortable being off 1 on 1 for a 4 hour period of time to see how he does and then we can re-evaluate. I will continue to focus on stabilization and discharge planning. FEDE / MAGGIE: [id number] / CALLY
[2018-10-23] MEDS ORDERED: HALOPERIDOL 5 MG TAB PO STA (12:25)
[2018-10-23] MEDS: MELATONIN 5 MG TABLET PO SCH (22:11)
[2018-10-23] MEDS: ACETAMINOPHEN TAB 325 MG TAB PO PRN (22:11)
[2018-10-24] MEDS: ARIPiprazole 15 MG TAB PO SCH (07:36)
[2018-10-24] MEDS: HALOPERIDOL 5 MG TAB PO SCH ×2 (07:36→20:48)
[2018-10-24] MEDS: NICOTINE 14MG/24HR PATCH TRANSDERM SCH (07:37)
[2018-10-24] MEDS: MAGNESIUM HYDROXIDE 2,400 MG/10 ML CUP PO PRN (09:47)
--- NOTE | 2018-10-24 11:52 | PN ---
PROGRESS NOTE DATE OF SERVICE: 10/24/2018 CHIEF COMPLAINT: The patient had delusions that he was engaged in [employer] and believed he was harming millions of people through that power. He was depressed with poor sleep and appetite. INTERVAL HISTORY: Patient has been doing fair. He had a quiet evening last night. He did attend groups yesterday. For the most part, in groups he is noted to have low energy and will participate only to a limited degree. He seems fairly withdrawn. He has been appropriate in his behavior. He had been on one-to-one for making statements about suicide that he thought there were various ways on the unit he could harm himself. We discontinued one-to-one staffing midmorning. The patient felt that he could manage without too much difficulty. He said that yesterday he was not having any thoughts in that direction. He slept fairly well. Today he has been up, he comes out in the day area. He continues to be down in his mood. He is able to say that he is not having thoughts of harm. It is noted that he did not make any references to telepathy or any unusual happenings outside of reality. He seemed to be down in his mood when I talked to him, though his conversation was fully reality based. We talked about things he might want to pursue in his life such as education or training opportunities to develop some productive skills in his life. He said he would consider checking in with [place] [facility] or other services. He reports no problems with his psychotropic medications. MENTAL STATUS: Patient sat without restlessness. Eye contact was fair. Psychomotor activity was slowed. Speech was monotone. He answered questions with brief responses. He did not say a lot. His affect was flat. His mood depressed. He seemed moderately distressed. There was no outward evidence of thought disorder. Cognition was clear. ASSESSMENT: I will continue the current diagnosis and treatment plan. I will continue psychotropic medications the same. The patient indicates today that he has not been having thoughts of harm to himself or others. He made no references to affecting anyone else in a negative way. No statements about telepathy. I reviewed treatment issues and plans for followup care. Will continue to focus on stabilization and discharge planning. MMODL / IJN: [id number] /
[2018-10-24] MEDS: MELATONIN 5 MG TABLET PO SCH (20:48)
[2018-10-24] MEDS: ACETAMINOPHEN TAB 325 MG TAB PO PRN (22:24)
[2018-10-25] MEDS: HALOPERIDOL 5 MG TAB PO SCH ×2 (07:36→20:40)
[2018-10-25] MEDS: ARIPiprazole 15 MG TAB PO SCH (07:36)
[2018-10-25] MEDS: MAGNESIUM HYDROXIDE 2,400 MG/10 ML CUP PO PRN (09:34)
--- NOTE | 2018-10-25 17:41 | PN ---
PROGRESS NOTE DATE OF SERVICE: 10/25/2018 CHIEF COMPLAINT: The patient had delusions that he was engaged in [employer] and believed he was harming millions of people through that power. He was depressed with poor sleep and appetite. INTERVAL HISTORY: The patient has been doing fair. He had a quiet evening last night. He comes out on the unit. He tends to have a quiet manner and does not interact too much with others. It was documented he slept 5 hours last night. Today he has been up. He has been reluctant to attend groups. He cannot really say why. He attended 3 groups yesterday, though so far none today. He seems to be a little more interactive and a little less depressed. Staff see him as showing a little more affective response in a positive way. The patient notes that he does tend to have a lot of nightmares. Sometimes he gets into nightmares just as he is falling asleep and it will wake him up again. He says that seems to happen all through the night. He tolerates his psychotropic medications. MENTAL STATUS: Patient sat without restlessness. Psychomotor activity was slowed. Speech was monotone and soft. He answered questions with brief responses. His thoughts were clear. His affect was blunted. He did seem to show a little more emotional responsiveness than previously. His mood was depressed. He seemed somewhat distressed. There was no indication of thought disorder. ASSESSMENT: I will continue the current diagnosis and treatment plan. I will continue psychotropic medications the same. I will start the patient on Tofranil. It does appear that he may have some decreased REM latency. I would look for the effect of Tofranil of increasing REM latency to help normalize sleep architecture. I reviewed medication issues with the patient. We discussed any thoughts of harm to self or others, which he says have not been in his thinking today. We will continue to focus on stabilization and discharge planning. MMODL / IJN: [id number] /
[2018-10-25] MEDS: MELATONIN 5 MG TABLET PO SCH (20:40)
[2018-10-25] MEDS: IMIPRAMINE 25 MG TAB PO SCH (20:40)
[2018-10-26] MEDS: ARIPiprazole 15 MG TAB PO SCH (08:17)
[2018-10-26] MEDS: HALOPERIDOL 5 MG TAB PO SCH ×2 (08:17→20:28)
[2018-10-26] MEDS: BENZTROPINE MESYLATE 1 MG TAB PO SCH ×2 (12:04→20:28)
--- NOTE | 2018-10-26 14:50 | PN ---
PROGRESS NOTE DATE OF SERVICE: 10/26/2018. CHIEF COMPLAINT: The patient had delusions that he was engaged in [employer] and believed he was harming millions of people through that power. He was depressed with poor sleep and appetite. INTERVAL HISTORY: Patient has been doing fair. He had a quiet evening last night. He was out in the day areas some. He will interact a little with others, though he generally maintains a fairly reserved manner. He has been making an effort to attend groups. He is appropriate in groups though tends to be on the quiet side. He slept 5-1/2 hours last night. Today he said that he has had less problems with dreaming and nightmares possibly related to the start of Tofranil. Today he has been up. He comes out in the day area. He continues to make an effort to attend groups. He says overall his mood is improved. He notes that he has not been having thoughts of harming himself or any others. He has not been having intrusive thoughts in that regard. He did not make mention of compulsive behaviors. Overall, he presents with a better outlook. He does note some restlessness, though, which may relate to his Haldol, though for the most part appears to tolerate his psychotropic medications. MENTAL STATUS: Patient sat without restlessness. He did shake his leg a little. He answered questions directly. His thoughts were clear, coherent, and goal directed. He was soft- spoken. His affect was reserved. He had a quiet manner, though seemed to be generally calm. He looked a little more relaxed than he has in previous interviews. His mood was not significantly depressed. There was no indication of thought disorder. Cognition was clear. ASSESSMENT: I will continue the current diagnosis and treatment plan. I will continue psychotropic medications the same. The patient showed some possible benefit with the initiation of Tofranil for sleep issues. I will start Cogentin 1 mg twice a day. I reviewed discharge planning issues. I talked with him about long-term expectations relating to his medications and dosing strategies. We will continue to focus on stabilization and discharge planning. FEDE / MAGGIE: [id number] /
[2018-10-26] MEDS: BISACODYL 5 MG TABLET.DR PO PRN (15:04)
[2018-10-26] MEDS: MELATONIN 5 MG TABLET PO SCH (20:28)
[2018-10-26] MEDS: IMIPRAMINE 25 MG TAB PO SCH (20:28)
[2018-10-27] MEDS: ARIPiprazole 15 MG TAB PO SCH (09:05)
[2018-10-27] MEDS: HALOPERIDOL 5 MG TAB PO SCH ×2 (09:05→21:01)
[2018-10-27] MEDS: BENZTROPINE MESYLATE 1 MG TAB PO SCH ×2 (09:05→21:02)
--- NOTE | 2018-10-27 12:27 | P.PN ---
Progress Note - Text Progress Note Date: 10/27/18 Interval History: Patient is a 27-year-old male who was seen today in coverage. He reports that the voices are less intense, he continues to hear them is not feeling as paranoid but states that he feels that staff can still read his mind but states he is not bothered by this and states that he can scrap picker other people's thoughts. He states that these are not as bothersome to him. Patient states that he sleeps some nights better than others. He states that he woke up last night at one in the morning and didn't return to sleep until very early this morning. Patient states that he is not having any suicidal thoughts and no homicidal thoughts. He states that he is eating well. He attended all groups yesterday state. Mental Status: Appearance/Attitude: Patient is neatly and appropriately dressed, made eye contact and was cooperative. Behavior: Patient did not display any psychomotor agitation or retardation but did complain of feeling restless and akathetic. Speech/Language: Patient's speech was spontaneous of normal volume and rhythm and he was coherent Thought Process: Patient was more goal-directed Thought Content: Patient reports that the voices are less intense, no visual hallucinations and states he is not feeling as paranoid or suspicious but states that staff can still read his mind and that he can scrap picker others thoughts but states he is not bothered by this as he was in the past. Patient continues to have difficulty sleeping ranging from either 2 or 5 hours a night. He states that he is eating well. Suicidal/Homicidal Ideation: Patient denies any current suicidal or homicidal ideation Sensorium/Cognition: Patient is alert and oriented to person, place, and time and his recent and remote memory are grossly intact Mood/Affect: Patient's mood remains bland however he appears slightly brighter today Insight/Judgment: Patient's insight and judgment are limited Assessment: Patient reports that he feels he is doing better but complains of feeling restless and like he needs to keep moving especially on the inside. He states that the voices are less intense, however he still feels that staff can read his mind and that he can scrap picker others thoughts but states this is not as bothersome as it was to him in the past. He states that he can ignore it and is no longer feeling as paranoid. He denied any current suicidal or homicidal ideation. Patient's sleep remains disrupted sleeping either 2 hours or 5 hours a night. He reports that he is eating well. Patient did attend all groups yesterday. Plan: Patient will continue on Haldol 10 mg twice a day and Cogentin 1 mg twice a day I will discontinue the Tofranil at night. I will decrease the patient's Abilify to 20 mg to decrease some of the akathisia that he is complaining about. Patient continues on melatonin as well. Patient continues to require hospitalization to further stabilize his psychotic symptoms.
[2018-10-27] MEDS ORDERED: ZIPRASIDONE 20 MG VIAL IM ONE (16:16)
[2018-10-27] MEDS: HALOPERIDOL LACTATE 5 MG/ML 1 ML VIAL IM PRN (16:39)
[2018-10-27] MEDS: MELATONIN 5 MG TABLET PO SCH (21:01)
[2018-10-28] MEDS: BENZTROPINE MESYLATE 1 MG TAB PO SCH ×2 (08:10→20:30)
[2018-10-28] MEDS: HALOPERIDOL 5 MG TAB PO SCH ×2 (08:10→20:29)
--- NOTE | 2018-10-28 09:33 | P.PN ---
Progress Note - Text Interval history: The patient is found in the hallway he follows me to an interview room. He states that he has not been doing well. His mood is been up and down. Symptoms of psychosis remaining acute. He states that he continues to hear auditory hallucination that is antagonizing repeating most of what he is hearing throughout the day. He feels antagonized by "just about everyone". He states people think he is a pedophile because of his past use of pornography. He feels that certain staff are threatening him verbally. He reports having continued visions of hurting others and himself although he has no desire to act on those thoughts. I reviewed documentation and his current medications. The Abilify has turned out to be ineffective and he is reporting some restlessness with it. The dose has artery been reduced to 20 mg daily. The plan would be to taper off of Abilify. Haldol is currently 10 mg twice daily. He continues to sleep poorly staff report he slept 1 hour last evening. Appetite stable but he states he is trying to reduce his intake as he is fearful he is gaining weight. Mental status exam: The patient is alert he presents with adequate hygiene and fair grooming. Eye contact is appropriate speech is fluent spontaneous nonpressured. He maintains a bland affect. He describes an antagonizing female auditory hallucination. He describes ongoing paranoid and persecutory thoughts that involve peers and staff on the mental health unit. He reports having intermittent suicidal thoughts. He states he has visions of hurting himself and others. He demonstrated no verbal or physical aggressiveness during the session. He demonstrates no tangential thinking loose associations or flight of ideas. He appears troubled by his current symptoms of psychosis. Insight and judgment limited. He demonstrates no involuntary repetitive movements. Plan: Ongoing symptoms of acute psychosis, the patient will continue on the Haldol as written we will reduce the Abilify to 5 mg for the next 2 days then discontinue. We will add Seroquel 100 mg at bedtime as an augmentation strategy and hopefully this will assist with his sleep at night. He reports intermittent participation in group she is encouraged to fully participate. He is encouraged to maintain appropriate hygiene grooming. He remains acutely psychotic and is not appropriate for discharge home as he would be expected to decompensate. For safety reasons he requires continued psychiatric hospitalization. Vital signs reviewed.
[2018-10-28] MEDS: ACETAMINOPHEN TAB 325 MG TAB PO PRN (17:16)
[2018-10-28] MEDS: MAGNESIUM HYDROXIDE 2,400 MG/10 ML CUP PO PRN (17:17)
[2018-10-28] MEDS ORDERED: QUEtiapine 100 MG TAB PO SCH (21:00)
[2018-10-29] MEDS: BENZTROPINE MESYLATE 1 MG TAB PO SCH (08:15)
[2018-10-29] MEDS: HALOPERIDOL 5 MG TAB PO SCH ×3 (08:15→21:08)
[2018-10-29] MEDS ORDERED: ARIPiprazole 5 MG TAB PO SCH (09:00)
--- NOTE | 2018-10-29 11:44 | P.PN ---
Progress Note - Text Interval history: The patient is found in his room he follows me to an interview room. Staff report that the patient only took half of the Haldol dose that was prescribed yesterday. He refused the Abilify that we were tapering off and he refused the Seroquel which was added to improve sleep and augment his antipsychotic treatment. He states that he wants to be placed on Vistaril for anxiety and trazodone for sleep. He continues to verbalize ongoing severe symptoms of psychosis. He indicates that he isn't attending groups but staff report that he is attending groups and making efforts to participate. Mental status exam: The patient's a male appearing his stated age. He presents with adequate hygiene grooming. He describes ongoing auditory hallucinations he describes ongoing troubling visions. He continues to feel that people are trying to antagonize him here and that everyone is talking about him in a negative fashion. He continues to state "I know telepathy is real". He reports having no desire to harm himself or others although he is having those "visions". He demonstrates no verbal or physical aggressiveness during our session. He demonstrates no involuntary repetitive movements. Insight and judgment impaired. Plan: Ongoing symptoms of acute psychosis, continue Haldol 10 mg twice daily we will add Vistaril 25 mg twice daily discontinue Cogentin. We will add trazodone 50 mg at bedtime. At length we discussed the need for him and I too agree to the treatment plan and to adhere to it each day. He is on a treatment order so if he does not comply after today's discussion we will have to utilize injections. He had concerned about his vital signs those were reviewed with him and they are stable.
[2018-10-29] MEDS: hydrOXYzine PAMOATE 25 MG CAP PO SCH ×2 (12:16→21:08)
[2018-10-29] MEDS: traZODone HCL 50 MG TAB PO SCH (21:08)
[2018-10-30] MEDS: HALOPERIDOL 5 MG TAB PO SCH ×2 (07:25→20:34)
[2018-10-30] MEDS: hydrOXYzine PAMOATE 25 MG CAP PO SCH ×2 (07:25→20:33)
--- NOTE | 2018-10-30 15:34 | P.PN ---
Progress Note - Text Progress Note Date: 10/30/18 Interval History: Patient is a 27-year-old male who was seen today in coverage and he reports that trazodone was effective in assisting him to sleep better and he feels that the Vistaril has been helpful. Patient states that he no longer thinks staff is talking about him, but he does think that at times they "neglect" him like when he asks for water or medications. Patient does not think that he can read other peoples minds and denies having any suicidal thoughts. When asked if he had any homicidal ideation he said he had unintentional ideation of when he sees a pattern that somebody may use it to kill someone. Patient denies any side effects from his medications. Mental Status: Appearance/Attitude: Patient is casually dressed, makes eye contact and was cooperative Behavior: Patient does not exhibit any psychomotor agitation or retardation. Speech/Language: Patient's speech is spontaneous, he speaks in a soft voice with normal rhythm and he is coherent Thought Process: Patient is goal-directed there is no evidence of loose associations or flight of ideas Thought Content: Patient denied any auditory hallucinations or visual hallucinations but states that he still thinks staff aren't neglecting him by not attending to him when he is asking for water medication, he states that he doesn't think that staff is talking about him, he states that he can't read other's minds. Patient states that the Vistaril is been helpful and the trazodone helped him sleep last night. Patient stated that he was eating well. Suicidal/Homicidal Ideation: Patient denied current suicidal ideation and when asked about homicidal ideations stated that he has unintentional ideation which she described as when he sees a pattern thinking at times that may be someone could use that to hurt someone, he has no current homicidal ideation. Sensorium/Cognition: Patient is alert and oriented to person, place and time and his recent and remote memory were grossly intact Mood/Affect: Patient's mood remains bland slightly guarded and his affect blunted Insight/Judgment: Patient's insight and judgment are limited Assessment: Patient reports an improvement in his sleep with the trazodone, feels the Vistaril has been helpful. He denied feeling that staff were talking about him, denied that he could read others' thoughts but did state that he felt staff was neglectful of him when he would ask for water medications but could not elaborate further. Patient states that he is not having any current suicidal ideation and no homicidal ideation. Patient reports no side effects from the medication. Plan: Patient continues on Haldol 10 mg twice a day, trazodone 50 at bedtime and Vistaril 25 twice a day. Patient continues to require hospitalization to further stabilize his psychotic symptoms.
[2018-10-30] MEDS: traZODone HCL 50 MG TAB PO SCH (20:33)
[2018-10-31] MEDS: BISACODYL 5 MG TABLET.DR PO PRN (06:48)
[2018-10-31] MEDS: hydrOXYzine PAMOATE 25 MG CAP PO SCH ×3 (08:14→20:37)
[2018-10-31] MEDS: HALOPERIDOL 5 MG TAB PO SCH ×2 (08:14→20:37)
--- NOTE | 2018-10-31 09:16 | P.PN ---
Progress Note - Text Interval history: The patient is found in group he follows me to an interview room. Initially he states he's not feeling very good he's having some mood swings but as the conversation progresses he states that yesterday he had some brief relief from some of his delusional thoughts. He still feels that people were talking about him but he felt safer. He thinks that some of the paranoia worsened in the afternoon. The trazodone does seem to be helping with sleep. He feels that the Vistaril is helping with anxiety. We discussed titrating the dose of Vistaril. He has remained compliant with the Haldol. He seems to be attending at least some groups. He was found in the goal setting group. He indicates that he had a conversation with his mother but could not remember the content of the conversation. Mental status exam: The patient is alert he is dressed in his own clothing. He has a disheveled appearance he hasn't shaved. Hygiene is adequate. Eye contact is appropriate. He is pleasant cooperative easily directed. He provides answers to questions asked he does not initiate much conversation today. He indicates his mood is not so good. Affect is bland. He reports having fewer visions of hurting people or himself. He again states he does not wish to act on those visions or thoughts. Intermittently he will experience an auditory hallucination. He states that he still has some paranoid persecutory thoughts but at least starting yesterday they seem to briefly remit. Insight and judgment limited. He demonstrates no verbal or physical aggressiveness. He demonstrates no involuntary repetitive movements. Plan: Ongoing symptoms of psychosis, the patient will continue on his current psychotropic medications. I will increase his Vistaril 25 mg 3 times daily. I'm hoping that we are seeing some improvement in the psychosis. I will confer with the treatment team this morning to discuss his progress over the last 48 hours. We will look for input from his mother based on their conversations. Vital signs reviewed. We will monitor him for safety and encourage his participation in the milieu. He requires continued psychiatric hospitalization.
[2018-10-31] MEDS: traZODone HCL 50 MG TAB PO SCH (20:37)
[2018-11-01] MEDS: HALOPERIDOL 5 MG TAB PO SCH ×2 (07:28→20:31)
[2018-11-01] MEDS: hydrOXYzine PAMOATE 25 MG CAP PO SCH ×3 (07:28→21:09)
--- NOTE | 2018-11-01 10:19 | P.PN ---
Progress Note - Text Interval history: The patient is found in his room he follows me to an interview room. He indicates that his mood is all right. He states he still has some delusional thoughts but is working on trying to push those away. He feels that he is sleeping better on the trazodone. He has been selectively attending some groups. He remains compliant with the Haldol. He feels that the Strahl may help with some of the anxiety. We will monitor if it's causing excessive sedation. Mental status exam: The patient is alert he has a disheveled appearance he is dressed in hospital gowns. Indicates his mood is all right. He states he still has some delusional thoughts but is trying to push those away. He reports no thoughts of wanting to harm himself or others. He is endorsing no auditory hallucinations today. He is still worried about others talking about him. He continues to feel that telepathy is real. He demonstrates no verbal or physical aggressiveness he demonstrates no involuntary repetitive movements. Insight and judgment slowly improving. He remains oriented to person place and date. Affect is constricted throughout the session. Speech is fluent mainly reactive to questions. Plan: The patient will continue on his current medication. We will plan on transitioning to Haldol decanoate. We will attempt to contact his mother regarding discharge planning. If we see continued improvement in terms of his symptoms of psychosis we will consider discharging him in the upcoming week. Vital signs reviewed. He is encouraged to continue participating in the milieu we will monitor him for safety.
[2018-11-01] MEDS: BISACODYL 5 MG TABLET.DR PO PRN ×2 (18:16→21:10)
[2018-11-01] MEDS: traZODone HCL 50 MG TAB PO SCH (20:31)
[2018-11-02 06:44] VITALS: RESP 18
[2018-11-02] MEDS: hydrOXYzine PAMOATE 25 MG CAP PO SCH ×2 (07:38→15:17)
[2018-11-02] MEDS: HALOPERIDOL 5 MG TAB PO SCH ×2 (07:40→20:27)
--- NOTE | 2018-11-02 13:08 | P.PN ---
Progress Note - Text Interval history: The patient is found in his room he follows me to an interview room. He initially states that his mood was not to good. He reports he did not attend groups this morning as no one woke him up. He states that he continues to have thoughts that people are talking about him. He feels that he is safer however. He was able to speak with his mother via phone this morning. He did not provide much detail regarding that conversation however. He is agreeable to having social work contact his mother. Mental status exam: The patient is a tall thin male appearing his stated age. He is dressed in his own clothing. He has a disheveled appearance. He initially states that his mood is not too good but later in the conversation states that it seems to be improving overall. He does continue to have some symptoms of psychosis but the severity seems decreased. He is reporting no suicidal or homicidal thoughts. He does continue to believe in telepathy and he continues to have some suspicious thoughts that others are talking about him. He demonstrates no verbal or physical aggressiveness he demonstrates no involuntary repetitive movements. Insight and judgment slowly improving. He is oriented to person place and date. He demonstrates no hypomanic or manic symptoms. Plan: The patient is slowly clinically stabilizing we discussed converting him to Haldol Decanoate and he is agreeable. We will continue to monitor him for safety he is encouraged to more fully participate in the milieu. Social work will make an effort to contact the patient's mother regarding discharge planning. Vital signs reviewed.
[2018-11-02] MEDS: traZODone HCL 50 MG TAB PO SCH (20:27)
[2018-11-03 06:30] VITALS: BP 111/54; PULSE 66; TEMP 97.6
[2018-11-03] MEDS: HALOPERIDOL 5 MG TAB PO SCH (08:07)
[2018-11-03] MEDS ORDERED: hydrOXYzine PAMOATE 25 MG CAP PO SCH (09:00)
--- NOTE | 2018-11-03 11:01 | P.DS ---
Providers Date of admission: 10/10/18 08:02 Expected date of discharge: 11/03/18 Attending physician: Reid Bowling Consults: 10/10/18 08:08 Consult Physician Routine Consulting Provider: Juan Jose Treviño Consult Reason/Comments: H & P w/medical management Do you want consulting provider notified?: Already Contacted Primary care physician: Stated None - Discharge Diagnosis(es) (1) Schizoaffective disorder, depressive type Current Visit: Yes Status: Acute Priority: High (2) Cannabis use disorder, mild, abuse Current Visit: No Status: Acute Priority: Medium Hospital Course: Brief summary of admission note: This patient is a 27-year-old single male who was admitted to the mental health unit on a pickup order due to acute symptoms of psychosis. The patient was petition by his mother. It indicated that he was angry he was experiencing paranoid delusions. Upon presentation the patient states that he felt people were talking about him. He kept saying he believes in the power of telepathy. He reported having visions of harming himself and harming others. For full details please refer to the psychiatric evaluation dated 10/10/2018. Summary of hospital course: The patient was admitted to the mental health unit in voluntarily. He did not to further wasn't hearing any treatment order was issued. The patient was initially started on Abilify and the dose was titrated to 30 mg daily. After several days of using this medication and became clear that was demonstrating no antipsychotic effect and in fact he felt more restless on it. The Abilify was tapered off and he was restarted on Haldol which she had used in the past. The dosage of the Haldol was titrated to 10 mg twice daily. Over the course of the hospitalization the patient slowly demonstrated attenuated symptoms of psychosis. He does continue to have some psychosis which is thought to be part of his baseline but it is attenuated from the time of admission. He feels safer he is able to participate in his own activities of daily living. He is demonstrating no agitated behavior. Earlier in the admission he would become agitated and requires some redirection. He was seen by internal medicine for routine history and physical exam. Social work has met with the patient to complete a psychosocial assessment and for discharge planning purposes. Social work has contacted the patient's mother who is his primary support. The patient does have his own apartment and is able to return there upon discharge. Mental status exam: The patient is alert he is pleasant cooperative. He is dressed in his own clothing. Eye contact is appropriate. Speech is fluent spontaneous nonpressured. He indicates he has no suicidal ideation intent or plan he reports no homicidal ideation intent or plan. He reports no other self- injurious thoughts. He indicates his mood is better overall. Affect is constricted. He demonstrates no verbal or physical aggressiveness he demon strates no involuntary repetitive movements. Thought process is linear during our conversation. He demonstrates no loose associations or flight of ideas. He does not appear hypomanic or manic currently. Insight and judgment have improved. He does have some continued symptoms of psychosis but they are attenuated and they do not appear to be negatively impacting his overall function. He demonstrates future oriented thinking. He is oriented to person place and date. Impressions 1. Schizoaffective disorder depressed type, cannabis use disorder Plan: The patient will be discharged mental [facility] unit today. He will continue on Haldol 10 mg twice daily temporarily. We will give him a Haldol decanoate 100 mg injection today. He will be seen by a prescriber at the [facility] within 7 days. At that time I expect the oral Haldol dose could be reduced. He will continue on Vistaril 25 mg twice daily trazodone 50 mg at bedtime. He is instructed to abstain from any use of alcohol marijuana or any illicit drugs. He does not wish to participate in inpatient chemical dependency treatment to address his marijuana use. At this time there is no imminent safety risk he is appropriate for transition back to outpatient care. It is recommended that the mobile crisis unit or other [facility] staff check on the patient over the next week. The patient's is on a treatment order. We discussed his obligations and consequences of not adhering to the treatment order. Patient Condition at Discharge: Stable Plan - Discharge Summary New Discharge Prescriptions: New traZODone HCL [Desyrel] 50 mg PO HS #30 tab Haloperidol [Haldol] 10 mg PO BID #30 tab hydrOXYzine PAMOATE [Vistaril] 25 mg PO BID #60 cap Discharge Medication List Haloperidol [Haldol] 10 mg PO BID #30 tab 11/03/18 [Rx] hydrOXYzine PAMOATE [Vistaril] 25 mg PO BID #60 cap 11/03/18 [Rx] traZODone HCL [Desyrel] 50 mg PO HS #30 tab 11/03/18 [Rx] Follow up Appointment(s)/Referral(s): None,Stated [Primary Care Provider] - 1-2 days Patient Instructions/Handouts: How to Stop Smoking (DC) Activity/Diet/Wound Care/Special Instructions: Activity and diet as tolerated. No guns or weapons in the home. No drugs or alcohol not prescribed by your primary care physician, or your out patient psychiatric provider. Attend follow up appointments, and take medications as prescribed. If in need of medication refills, please go to primary care physician, or your out patient psychiatric provider. If in crisis, please call , or go the nearest ER, for an evaluation.
[2018-11-03] MEDS ORDERED: HALOPERIDOL DECANOATE 100 MG/ML 1 ML VIAL IM SCH (12:00)
== END 2018-11-03 12:08 | disposition home or self-care (01) | DRG 885 ==
LOC: EC 19:57 → 3MHU 10-10 08:02
PROVIDERS: ADMIT Psychiatry & Neurology Psychiatry; ATTEND Psychiatry & Neurology Psychiatry
DX: F25.1 Schizoaffective disorder, depressive type (principal); R45.851 Suicidal ideations; F12.10 Cannabis abuse, uncomplicated; Z71.51 Drug abuse counseling and surveillance of drug abuser; Z71.6 Tobacco abuse counseling; F17.210 Nicotine dependence, cigarettes, uncomplicated; F31.9 Bipolar disorder, unspecified; F41.9 Anxiety disorder, unspecified; Z79.899 Other long term (current) drug therapy; Z81.8 Family history of other mental and behavioral disorders; Z82.49 Family history of ischemic heart disease and other diseases of the circulatory system; Z82.61 Family history of arthritis; I10 Essential (primary) hypertension
CPT/HCPCS: 80053; 80061; 80306; 82075; 82248; 83036; 84443; 85025; 99285

== ENCOUNTER 2018-12-10 16:29 | Emergency (ER) | payer MEDICARE, OTHER ==
--- NOTE | 2018-12-10 16:55 | ED ---
Psych HPI - General Source: patient, police, RN notes reviewed, old records reviewed Mode of arrival: ambulatory - History of Present Illness MD Complaint: suicidal ideation, feels depressed -: days(s) Associated Psychiatric Symptoms: delusions Improves With: none Worsens With: none Context: recent drug abuse Associated Symptoms: denies other symptoms Treatments Prior to Arrival: placed on mental health hold <Von Jara - Last Filed: 12/10/18 18:19> <Zo Braswell - Last Filed: 12/11/18 07:12> - General Chief Complaint: Psychiatric Symptoms Stated Complaint: MENTAL HEALTH Time Seen by Provider: 12/10/18 16:37 - History of Present Illness Initial Comments: This is a 28-year-old male the ER for this patient. Patient resents today for evaluation regards to not acting appropriately patient brought in for evaluation by psych. Patient has no significant drug abuse currently, not denies drugs or alcohol currently. Patient does admit to recently smoking weed and doing weird things were causing his health, color showed sclerae thinks it did not need to be color. Family concerned about patient's mental health. Patient denies homicidal or suicidal thoughts (Von Jara) - Related Data Home Medications Medication Instructions Recorded Confirmed Benztropine Mesylate [Cogentin] 2 mg PO BID 12/10/18 12/10/18 Haloperidol Decanoate [Haldol D] 200 mg IM Q14D 12/10/18 12/10/18 QUEtiapine [SEROquel] 25 mg PO TID PRN 12/10/18 12/10/18 traZODone HCL [Desyrel] 100 - 200 mg PO HS PRN 12/10/18 12/10/18 Previous Rx's Medication Instructions Recorded Haloperidol [Haldol] 10 mg PO BID #30 tab 11/03/18 hydrOXYzine PAMOATE [Vistaril] 25 mg PO BID #60 cap 11/03/18 Allergies Allergy/AdvReac Type Severity Reaction Status Date / Time No Known Allergies Allergy Verified 12/10/18 16:43 Review of Systems ROS Other: All systems not noted in ROS Statement are negative. <Von Jara - Last Filed: 12/10/18 18:19> ROS Other: All systems not noted in ROS Statement are negative. <Zo Braswell Danette - Last Filed: 12/11/18 07:12> ROS Statement: Those systems with pertinent positive or pertinent negative responses have been documented in the HPI. Past Medical History Past Medical History: No Reported History Additional Past Medical History / Comment(s): schizo-affective, bipolar History of Any Multi-Drug Resistant Organisms: None Reported Past Surgical History: No Surgical Hx Reported Past Anesthesia/Blood Transfusion Reactions: No Reported Reaction Past Psychological History: Anxiety, Bipolar, Depression, Schizoaffective Disorder Smoking Status: Current every day smoker Past Alcohol Use History: Occasional Past Drug Use History: Marijuana - Past Family History Mother Additional Family Medical History / Comment(s): Mother with history of heart disease and arthritis Family Additional Family Medical History / Comment(s): Admits to mental health problems in his family without specifying further details <Von Jara - Last Filed: 12/10/18 18:19> General Exam Limitations: no limitations General appearance: alert, in no apparent distress Head exam: Present: atraumatic, normocephalic, normal inspection Eye exam: Present: normal appearance, PERRL, EOMI. Absent: scleral icterus, conjunctival injection, periorbital swelling ENT exam: Present: normal exam, mucous membranes moist Neck exam: Present: normal inspection. Absent: tenderness, meningismus, lymphadenopathy Respiratory exam: Present: normal lung sounds bilaterally. Absent: respiratory distress, wheezes, rales, rhonchi, stridor Cardiovascular Exam: Present: regular rate, normal rhythm, normal heart sounds. Absent: systolic murmur, diastolic murmur, rubs, gallop, clicks GI/Abdominal exam: Present: soft, normal bowel sounds. Absent: distended, tenderness, guarding, rebound, rigid Extremities exam: Present: normal inspection, full ROM, normal capillary refill. Absent: tenderness, pedal edema, joint swelling, calf tenderness Back exam: Present: normal inspection Neurological exam: Present: alert, oriented X3, CN II-XII intact Psychiatric exam: Present: normal affect, normal mood Skin exam: Present: warm, dry, intact, normal color. Absent: rash <Von Jara - Last Filed: 12/10/18 18:19> Course <Von Jara - Last Filed: 12/10/18 18:19> Vital Signs 12/10/18 12/10/18 12/11/18 16:32 19:05 02:31 Temperature 97.9 F 98 F Pulse Rate 75 60 65 Respiratory 18 14 18 Rate Blood Pressure 113/72 131/79 125/74 O2 Sat by Pulse 99 98 98 Oximetry - Reevaluation(s) Reevaluation #1: 12/10/18 18:20 Medical clear for psychiatric evaluation (Von Jara) Medical Decision Making <Zo Braswell - Last Filed: 12/11/18 07:12> - Medical Decision Making I was asked to complete a clinical significant on the patient, I saw and evaluated the patient, I did repeat the patient the statement on the clinical certificate. Patient admitted to hearing voices and being non-compliant with medication regimen. Patient understands plan for transfer to inpatient psychiatric facility. (Zo Braswell) - Lab Data Lab Results 12/10/18 Range/Units 16:19 Urine Opiates Screen Not Detected (NotDetected) Ur Oxycodone Screen Not Detected (NotDetected) Urine Methadone Screen Not Detected (NotDetected) Ur Propoxyphene Screen Not Detected (NotDetected) Ur Barbiturates Screen Not Detected (NotDetected) U Tricyclic Antidepress Not Detected (NotDetected) Ur Phencyclidine Scrn Not Detected (NotDetected) Ur Amphetamines Screen Not Detected (NotDetected) U Methamphetamines Scrn Not Detected (NotDetected) U Benzodiazepines Scrn Not Detected (NotDetected) Urine Cocaine Screen Not Detected (NotDetected) U Marijuana (THC) Screen Detected H (NotDetected) Disposition <Von Jara - Last Filed: 12/10/18 18:19> Is patient prescribed a controlled substance at d/c from ED?: No <Zo Braswell - Last Filed: 12/11/18 07:12> Clinical Impression: Schizoaffective disorder, depressive type Disposition: TRANSFER TO PSYCH HOSP/UNIT Condition: Stable Referrals: None,Stated [Primary Care Provider] - 1-2 days
[2018-12-10 17:20] LABS: Amphetamine Screen,Urine Not Detected (NotDetected); Barbiturate Screen,Urine Not Detected (NotDetected); Benzodiazepines Screen,Urine Not Detected (NotDetected); Cocaine Screen,Urine Not Detected (NotDetected); Methadone Screen, Urine Not Detected (NotDetected); Opiate Screen,Urine Not Detected (NotDetected); Oxycodone Screen, Urine Not Detected (NotDetected); Phencyclidine Screen,Urine Not Detected (NotDetected); Tricyclic Antidepressant,Urine Not Detected (NotDetected); Urn Cannabinoid Scrn Detected (NotDetected)
[2018-12-11 02:33] VITALS: BP 125/74; PULSE 65; RESP 18; TEMP 98
== END 2018-12-11 02:41 ==
LOC: EC 16:29
DX: F25.1 Schizoaffective disorder, depressive type (principal); F12.90 Cannabis use, unspecified, uncomplicated; F17.200 Nicotine dependence, unspecified, uncomplicated; Z91.14 Patient's other noncompliance with medication regimen; Z79.899 Other long term (current) drug therapy
CPT/HCPCS: 80306; 82075; 99285